=== PATIENT | male | born 1960 | race Asian ===

== ENCOUNTER 2023-05-02 19:40 | Emergency (ER) | payer SELFPAY ==
[2023-05-02] MEDS ORDERED: Vancomycin 1 GM VIAL ONE (20:36)
[2023-05-02] MEDS ORDERED: Ketorolac Tromethamine 30 MG/ML VIAL ONE (20:36)
[2023-05-02] MEDS ORDERED: Boostrix 0.5 ML (Tdap) VIAL (>/=7 yrs of age) ONE (20:37)
[2023-05-02] MEDS ORDERED: Cefepime 2 GM VIAL ONE (20:44)
[2023-05-02 20:48] LABS: #Basophils 0.1 10x3/uL (0.0-0.2); #Eosinphils 0.1 10x3/uL (0.0-0.5); #Monocytes 0.9 10x3/uL (0.0-1.1); #Neutrophils 9.1 10x3/uL (1.5-8.4); %Basophils 0.4 % (0.0-2.0); %Eosinophils 0.7 % (0.0-6.0); %Lymphocytes 15.2 % (18.0-47.0); %Monocytes 7.8 % (0.0-10.0); %Neutrophils 75.6 % (40.0-75.0); Hematocrit 37.8 % (38.8-50.0); Hemoglobin 13.3 g/dL (13.5-17.5); Mean Corpuscular HGB CONC 35.2 g/dL (32.0-36.0); Mean Corpuscular Hemoglobin 29.3 pg (27.0-33.0); Mean Corpuscular Volume 83.3 fl (81.2-95.1); Mean Platelet Volume 11.9 fl (7.4-10.4); Platelet Count 203 10x3/uL (150-450); RBC Distribution Width 11.9 % (11.5-14.5); Red Blood Cell (RBC) Count 4.54 10x6/uL (4.32-5.72); White Blood Cell (WBC) Count 12.1 10x3/uL (3.5-10.5)
[2023-05-02 21:03] LABS: ALT (SGPT) 12 U/L (8-55); AST (SGOT) 12 U/L (5-34); Albumin 3.2 g/dL (3.4-4.8); Alkaline Phosphatase 76 U/L (40-110); Anion Gap 11 mmol/L (10-20); BUN (Urea Nitrogen) 15 mg/dL (8.4-25.7); Calc. Creatinine Clearance 0 mL/min (70-130); Calcium 8.5 mg/dL (7.8-10.44); Carbon Dioxide 25 mmol/L (23-31); Chloride 98 mmol/L (98-107); Estimated GFR 76; Globulin 4.8 g/dL (2.4-3.5); Glucose 294 mg/dL (80-115); Sodium 130 mmol/L (136-145)
== END 2023-05-02 23:37 | disposition short-term general hospital (02) ==
LOC: CSHERS 19:40
DX: L03.116 Cellulitis of left lower limb (principal); M86.8X7 Other osteomyelitis, ankle and foot; I10 Essential (primary) hypertension; E11.9 Type 2 diabetes mellitus without complications
CPT/HCPCS: 36415; 80053; 83605; 85025; 87040; 87070; 87077; 87186; 87205; 90471; 90715; 93005; 96365; 96375; J0692; J1885; J3370

== ENCOUNTER 2023-05-10 08:57 | Outpatient (CLI) | payer SELFPAY | END 2023-05-10 08:58 | disposition home or self-care (01) | LOC: CSHWCC 08:57 | PROVIDERS: ATTEND Preventive Medicine Undersea and Hyperbaric Medicine | DX: T87.89 Other complications of amputation stump (principal) | CPT/HCPCS: 97605; 99203; G0463 ==

== ENCOUNTER 2023-05-15 09:11 | Outpatient (CLI) | payer SELFPAY | END 2023-05-15 09:12 | disposition home or self-care (01) | LOC: CSHWCC 09:11 | PROVIDERS: ATTEND Physician Assistant | DX: T87.89 Other complications of amputation stump (principal) | CPT/HCPCS: 97605 ==

== ENCOUNTER 2023-05-18 08:48 | Outpatient (CLI) | payer SELFPAY | END 2023-05-18 08:49 | disposition home or self-care (01) | LOC: CSHWCC 08:48 | PROVIDERS: ATTEND Physician Assistant | DX: E11.621 Type 2 diabetes mellitus with foot ulcer (principal) | CPT/HCPCS: 97605; 99205; G0463 ==

== ENCOUNTER 2023-05-22 08:35 | Outpatient (CLI) | payer SELFPAY | END 2023-05-22 08:36 | disposition home or self-care (01) | LOC: CSHWCC 08:35 | PROVIDERS: ATTEND Physician Assistant | DX: E11.621 Type 2 diabetes mellitus with foot ulcer (principal); L97.509 Non-pressure chronic ulcer of other part of unspecified foot with unspecified severity | CPT/HCPCS: 97605 ==

== ENCOUNTER 2023-05-25 14:34 | Outpatient (CLI) | payer SELFPAY | END 2023-05-25 14:35 | disposition home or self-care (01) | LOC: CSHWCC 14:34 | PROVIDERS: ATTEND Physician Assistant | DX: E11.621 Type 2 diabetes mellitus with foot ulcer (principal); L97.509 Non-pressure chronic ulcer of other part of unspecified foot with unspecified severity | CPT/HCPCS: 97597 ==

== ENCOUNTER 2023-06-06 10:15 | Outpatient (CLI) | payer SELFPAY | END 2023-06-06 10:16 | disposition home or self-care (01) | LOC: CSHWCC 10:15 | PROVIDERS: ATTEND Physician Assistant | DX: E11.621 Type 2 diabetes mellitus with foot ulcer (principal); L97.529 Non-pressure chronic ulcer of other part of left foot with unspecified severity | CPT/HCPCS: 99211; G0463 ==

== ENCOUNTER 2023-06-13 10:09 | Outpatient (CLI) | payer SELFPAY | END 2023-06-13 10:10 | disposition home or self-care (01) | LOC: CSHWCC 10:09 | PROVIDERS: ATTEND Physician Assistant | DX: E11.621 Type 2 diabetes mellitus with foot ulcer (principal); L97.509 Non-pressure chronic ulcer of other part of unspecified foot with unspecified severity | CPT/HCPCS: 99212; G0463 ==